=== PATIENT | male | born 1955 | race Hispanic/Latino ===

== ENCOUNTER → 2017-10-31 | Outpatient (CLI) | payer BC ==
--- NOTE | 2017-10-31 11:33 | Diagnostic Imaging Report ---
Right knee MRI without contrast. History: Knee pain. Meniscus tear. Pain not responding to conservative management. Comparison: None. Technique: Multiplanar multi-sequence MRI of the knee without contrast. Findings: Medial compartment: There is degeneration and fraying of the medial meniscus. No medial meniscus tear is seen. The medial compartmental articular cartilage surfaces are thinned with regions of fraying and fissuring. There is mild underlying bone marrow edema. There are small peripheral marginal osteophytes. The medial collateral ligament complex is intact. Lateral compartment: There is a complex displaced bucket-handle type tear involving the posterior horn and body segments of the lateral meniscus area of meniscal tissue is displaced anteriorly and into the intercondylar notch region. There is advanced full-thickness articular cartilage loss in the lateral compartment with underlying bone marrow edema. There are peripheral marginal osteophytes. The lateral collateral ligament complex is intact. There is a chronic appearing deformity of the posterior lateral tibial plateau. Peripheral varicose veins are seen. Intercondylar notch: There is degeneration and scarring of the anterior cruciate and posterior cruciate ligaments. The ACL and PCL are otherwise intact. Patellofemoral compartment: There is articular cartilage fraying and deep fissuring in the patellofemoral compartment with mild underlying bone marrow edema. Extensor mechanism: The quadriceps and patellar tendons are normal. Other findings: There is a joint effusion and synovitis. There is no acute fracture, subluxation or avascular necrosis. IMPRESSION: Complex displaced lateral meniscus tear with advanced degenerative arthrosis in the lateral compartment of the knee. Less severe degenerative arthrosis in the medial and patellofemoral compartments. Joint effusion, synovitis and varicose veins. Signed by: Dr. Dylon Lima M.D. on 10/31/2017 11:26 AM
== END ==
LOC: MRI 08:43
PROVIDERS: ATTEND Specialist
DX: S83.241A Other tear of medial meniscus, current injury, right knee, initial encounter (principal)

== ENCOUNTER → 2018-04-09 | Day surgery (SDC) | payer BC ==
[~2018-04-09] MED LIST: ACETAMINOPHEN650 MG PO; BUPIVACAINE 0.5%/EPI 30 ML SDV INJ ONE; CEFAZOLIN SOD 2 GM/D5W 50ML 50 ML IV ONE; COLCRYS0.6 MG PO; DEXAMETHASONE SOD PHOS INJ 4 MG/ML VIAL ONE; EPHEDRINE SULFATE INJ 50 MG/10 ML SYR ONE; FENTANYL CITRATE/PF 100MCG/2 ML INJ ONE; FLOMAX0.4 MG PO; LIDOCAINE HCL 2% LOCAL INJ 5 ML SDV VIAL INJ ONE; LISINOPRIL10 MG PO; MIDAZOLAM HCL 2 MG/2 ML VIAL ONE; ONDANSETRON HCL INJ 2 MG/ML VIAL ONE; PROPOFOL IV EMULSION 10 MG/ML 20 ML VIAL ONE; SEVOFLURANE INHAL SOLN 250 ML PEN BTL ONE
[2018-04-09 13:55] VITALS: BP 143/86
--- NOTE | 2018-04-09 22:09 | Operative Report ---
DATE OF PROCEDURE: April 09, 2018 PREOPERATIVE DIAGNOSES: 1. Right knee lateral meniscus tear. 2. Right knee degenerative joint disease of the knee. POSTOPERATIVE DIAGNOSES: 1. Right knee lateral meniscus tear. 2. Right knee degenerative joint disease of the knee. 3. Right knee removal of intra-articular loose bodies from the lateral compartment as well as poly villonodular synovitis. PROCEDURE: 1. Right knee examination under anesthesia. 2. Right knee arthroscopy. 3. Right knee partial lateral meniscectomy. 4. Right knee chondroplasty of the patella, the trochlea, the medial femoral condyle, the medial tibial plateau, the lateral femoral condyle, the lateral tibial plateau. 5. Removal of multiple loose bodies from the lateral compartment. 6. Debridement of the poly villonodular synovitis. ANESTHESIA: General endotracheal intubation anesthesia. IV FLUIDS: Per the anesthesia record. BRIEF DESCRIPTION OF PATIENT'S OPERATIVE PROCEDURE: Mr. Guthrie was taken to the operating room and placed in the supine position on the operating room table. Following the induction of general anesthesia as well as endotracheal intubation, the patient's right lower extremity was examined under anesthesia. He was found to have a 3+ effusion involving the knee joint. Range of motion of the knee was well preserved. There was a patellofemoral crepitus. A 2-portal technique was used to provide this patient arthroscopic evaluation of the knee joint. The scope was placed within the knee atraumatically. The knee was drained of its effusion. Examination of the suprapatellar pouch and medial and lateral gutters found no evidence of loose bodies. There was, however, chondromalacia of the patellar and trochlear surfaces. The scope was advanced in the medial compartment and examination of the medial compartment demonstrated chondromalacia of the articulating surfaces. There was no evidence of a meniscus injury. Chondroplasties of the medial femoral condyle and medial tibial plateau were performed at this time. The scope was then advanced into the intercondylar notch and there was significant poly villonodular synovitis. Careful debridement of this area was performed at this time. The scope was then advanced into the lateral compartment, and a torn and macerated lateral meniscus was identified. This began in the posterior horn and extended to the anterior horn. There was also advanced arthrosis and multiple intra-articular loose bodies. A shaver was used to excise the loose bodies. A combination of biting forceps and a shaver was used to provide the patient a lateral meniscectomy. Chondroplasties of the lateral femoral condyle and lateral tibial plateau were performed at this time. The scope was then advanced in the suprapatellar pouch, and a chondroplasty of the patella and trochlear surfaces was performed. The knee was deflated of its sterile normal saline. The portal sites were closed using 4-0 nylon suture. The portal sites as well as the knee itself were then injected with 0.5% Marcaine with epinephrine. Sterile dressings were applied, and the patient was then awakened and taken to the postanesthesia care unit in stable condition. Job#: [id number]
== END | disposition home or self-care (01) ==
LOC: OR 08:56
PROVIDERS: ATTEND Specialist
DX: S83.281A Other tear of lateral meniscus, current injury, right knee, initial encounter (principal); M22.41 Chondromalacia patellae, right knee; M17.11 Unilateral primary osteoarthritis, right knee; M23.41 Loose body in knee, right knee; M12.261 Villonodular synovitis (pigmented), right knee; M06.9 Rheumatoid arthritis, unspecified; M10.9 Gout, unspecified; I10 Essential (primary) hypertension; F41.9 Anxiety disorder, unspecified; X58.XXXA Exposure to other specified factors, initial encounter; Z01.810 Encounter for preprocedural cardiovascular examination; Z87.891 Personal history of nicotine dependence
CPT/HCPCS: 29881; 93005; J1100; J2001; J2250; J2405